=== PATIENT | male | born 2000 | race Caucasian/White ===

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

== ENCOUNTER 2022-02-05 19:09 | Emergency (ER) | payer MEDICAID | END 2022-02-05 19:33 | disposition left against medical advice (07) | LOC: ER 19:11 | DX: M54.59 Other low back pain (principal); Z53.21 Procedure and treatment not carried out due to patient leaving prior to being seen by health care provider ==